=== PATIENT | male | born 1995 ===

== ENCOUNTER 2019-12-15 06:11 | Day surgery (SDC) | payer OTHER ==
[~2019-12-15 06:11] MED LIST: KETO10TA2 PO; NASAL MIST126 ML; [UNRECOGNIZED DRUG - OTHER] PO
[2019-12-15] MEDS ORDERED: PERCOCET 5-3251 EACH PO (11:51)
[2019-12-15] MEDS ORDERED: CEFADROXIL500 MG PO (11:51)
== END 2019-12-15 15:40 | disposition home or self-care (01) ==
LOC: CIR.AMB 06:11 → ADM 11:30 → CIR.AMB 13:00
PROVIDERS: ATTEND Orthopaedic Surgery
DX: S42.022A Displaced fracture of shaft of left clavicle, initial encounter for closed fracture (principal); S40.012A Contusion of left shoulder, initial encounter